=== PATIENT | female | born 1950 | race Caucasian/White ===

== ENCOUNTER 2023-01-09 13:18 | Emergency (ER) | payer OTHER ==
[~2023-01-09] VITALS: Ht 162.6 cm; Wt 59.0 kg
[2023-01-09 13:21] VITALS: BP_SYST 181
[2023-01-09] MEDS ORDERED: traMADol HCL HCL 50 MG TABLET (ULTRAM) PO ONE (14:30)
[2023-01-09 15:06] LABS: BASOPHILS % (AUTO) 0.5 % (0.0-2.0); EOSINOPHILS % (AUTO) 0.8 % (0.0-4.0); HEMOGLOBIN 14.1 g/dL (12.0-16.0); LYMPHOCYTES # (AUTO) 1.4 K/uL (1.0-5.5); LYMPHOCYTES % (AUTO) 25.9 % (20.5-51.5); MEAN CORPUSCULAR HEMOGLOBIN 31 pg (27-31); MEAN CORPUSCULAR HGB CONC 34 % (32-36); MEAN CORPUSCULAR VOLUME 90 fL (79.0-98.0); MONOCYTES # (AUTO) 0.4 K/uL (0.0-1.0); MONOCYTES % (AUTO) 7.7 % (1.7-9.3); NEUTROPHILS # (AUTO) 3.5 K/uL (1.8-7.7); NEUTROPHILS % (AUTO) 65.1 % (40.0-70.0); PLATELET COUNT (AUTO) 182 K/uL (130-430); RED BLOOD CELL COUNT(AUTO) 4.56 MIL/uL (4.2-6.2); RED CELL DISTRIBUTION WIDTH 12.8 % (9.0-15.0); WHITE BLOOD COUNT (AUTO) 5.4 K/uL (4.8-10.8)
[2023-01-09 15:19] LABS: ANION GAP 7 (5-15); CHLORIDE 100 mmol/L (98-107); CREATININE 0.67 mg/dL (0.55-1.30); GLUCOSE 116 mg/dL (70-99); UREA NITROGEN, BLOOD 14 mg/dL (8-21)
[2023-01-09 15:25] LABS: ALANINE AMINOTRANSFERASE 20 U/L (12-78); ASPARTATE AMINOTRANSFERASE 10 U/L (10-37); TOTAL BILIRUBIN 0.6 mg/dL (0.0-1.0)
--- NOTE | 2023-01-09 16:23 | NUR ---
BIB SELF FROM HOME WITH C/O LIGHT HEADEDNESS AND DIZZINESS SINCE THIS MORNING. HX - CANCER, SURGERY. PT IS A CITIZEN OF [place]. PT IS AAX04, NAD, VSS, BREATHING EVEN AND UNLABORED ON RA, PT ON MEDICAL CASE WORKER SHOW NSR. PT REST ON GURNEY IN HALLWAY. SAFETY PRECAUTIONS AND COMFORT MEASURES IN PLACE. PENDING MD VEGA AND ORDERS.
--- NOTE | 2023-01-09 16:25 | NUR ---
BESSY Pierson at bedside examining patient.
[2023-01-09] MEDS ORDERED: traMADol HCL HCL 50 MG TABLET (ULTRAM) ONE (17:26)
[2023-01-09] MEDS ORDERED: TRAM50TA2 PO (18:12)
[2023-01-09] MEDS ORDERED: PSEU30CA2 PO (18:12)
[2023-01-09] MEDS ORDERED: MECL-225 PO (18:12)
--- NOTE | 2023-01-09 18:51 | NUR ---
PT IS MEDICALLY FOR D/C. D/C INSTRUCTIONS GIVEN TO PT. PT TO FOLLOW-UP WITH PCP WITHIN 1-3 DAYS AND TO RETURN TO ED FOR WORSENING S/S. PT VERBALIZED UNDERSTANDING. PT IS AAOX4, NAD, VSS, WRISTBAND REMOVED. PT AMBULATORY WITH STEADY GAIT. PT LEFT ED WITH ALL BELONGINGS.
[2023-01-09 18:52] VITALS: BP_SYST 135
== END 2023-01-09 18:52 | disposition home or self-care (01) ==
LOC: SED 13:18
DX: H92.02 Otalgia, left ear (principal); R42 Dizziness and giddiness; R07.89 Other chest pain; R50.9 Fever, unspecified; I10 Essential (primary) hypertension; E78.5 Hyperlipidemia, unspecified; Z79.899 Other long term (current) drug therapy; Z20.822 Contact with and (suspected) exposure to COVID-19
CPT/HCPCS: 99285; 70470; 71045; 87426; 80053; 85025; 84484; 36415; 93005; 76376; 87804 ×2; Q9967

== ENCOUNTER 2023-03-03 21:47 | Emergency (ER) | payer OTHER, MEDICAID ==
[~2023-03-03] VITALS: Ht 157.5 cm; Wt 63.0 kg
[~2023-03-03 21:47] MED LIST: MECL-225 PO; PSEU30CA2 PO; TRAM50TA2 PO
[2023-03-03 22:08] VITALS: BP_SYST 175
[2023-03-04 00:07] LABS: BASOPHILS % (AUTO) 0.3 % (0.0-2.0); EOSINOPHILS # (AUTO) 0.1 K/uL (0.0-0.4); EOSINOPHILS % (AUTO) 0.7 % (0.0-4.0); HEMOGLOBIN 12.8 g/dL (12.0-16.0); LYMPHOCYTES # (AUTO) 1.4 K/uL (1.0-5.5); LYMPHOCYTES % (AUTO) 18.5 % (20.5-51.5); MEAN CORPUSCULAR HEMOGLOBIN 31 pg (27-31); MEAN CORPUSCULAR HGB CONC 34 % (32-36); MEAN CORPUSCULAR VOLUME 92 fL (79.0-98.0); MONOCYTES # (AUTO) 0.5 K/uL (0.0-1.0); MONOCYTES % (AUTO) 6.7 % (1.7-9.3); NEUTROPHILS # (AUTO) 5.8 K/uL (1.8-7.7); NEUTROPHILS % (AUTO) 73.8 % (40.0-70.0); PLATELET COUNT (AUTO) 170 K/uL (130-430); RED BLOOD CELL COUNT(AUTO) 4.12 MIL/uL (4.2-6.2); WHITE BLOOD COUNT (AUTO) 7.8 K/uL (4.8-10.8)
[2023-03-04 00:08] LABS: BILIRUBIN,URINE NEGATIVE (NEGATIVE); COLOR,URINE YELLOW (YELLOW); GLUCOSE,URINE NEGATIVE (NEGATIVE); KETONES,URINE NEGATIVE (NEGATIVE); LEUKOCYTE ESTERASE ,URINE 2+ (NEGATIVE); NITRITE, URINE NEGATIVE (NEGATIVE); PROTEIN URINE NEGATIVE (NEGATIVE); UROBILINOGEN,URINE 0.2 (0.2-1.0)
[2023-03-04 00:13] LABS: BLOOD, URINE TRACE (NEGATIVE); CLARITY/URINE SLIGHTLY CLOUDY (CLEAR)
[2023-03-04 00:35] LABS: ANION GAP 10 (5-15); CALCIUM 8.2 mg/dL (8.4-11.0); CHLORIDE 105 mmol/L (98-107); CREATININE 0.71 mg/dL (0.55-1.30); GLUCOSE 123 mg/dL (70-99); UREA NITROGEN, BLOOD 18 mg/dL (8-21)
[2023-03-04 00:39] LABS: ALANINE AMINOTRANSFERASE 20 U/L (12-78); ALBUMIN 3.6 g/dL (3.4-4.8); ASPARTATE AMINOTRANSFERASE 16 U/L (10-37); LIPASE 88 U/L (73-393); TOTAL BILIRUBIN 0.3 mg/dL (0.0-1.0)
[2023-03-04 00:50] LABS: BACTERIA,URINE FEW /HPF (None Seen)
[2023-03-04] MEDS ORDERED: NACL 0.9% 1,000 ML IV ONE (01:00)
[2023-03-04] MEDS ORDERED: PHEN-726 PO ×2 (01:46)
[2023-03-04] MEDS ORDERED: LOPE2CAP PO ×2 (01:46)
[2023-03-04] MEDS ORDERED: PROCHLORPERAZINE EDISYLATE 10 MG/2 ML VIAL IVP ONE (02:00)
[2023-03-04] MEDS ORDERED: MORPHINE 4 MG INJ. 4 MG/ML VIAL IVP ONE (02:00)
[2023-03-04] MEDS ORDERED: cefTRIAXone 1 GM in D5W 50 ML IV ONE (02:30)
[2023-03-04] MEDS ORDERED: cefTRIAXone 1 GM VIAL ONE (03:22)
[2023-03-04] MEDS ORDERED: NITR-85 PO ×2 (03:39→03:40)
[2023-03-04] MEDS ORDERED: DOCU-144 PO ×2 (03:39→03:40)
[2023-03-04] MEDS ORDERED: MILK OF MAGNESIA 30 ML UDC PO ONE (04:00)
[2023-03-04 04:15] VITALS: BP_SYST 127
== END 2023-03-04 04:15 | disposition home or self-care (01) ==
LOC: SED 21:47
DX: N39.0 Urinary tract infection, site not specified (principal); K59.00 Constipation, unspecified; K92.2 Gastrointestinal hemorrhage, unspecified; I10 Essential (primary) hypertension; Z88.0 Allergy status to penicillin; Z88.6 Allergy status to analgesic agent; Z79.899 Other long term (current) drug therapy
CPT/HCPCS: 99285; 80053; 81000; 83690; 85025; 87040; 87086; 36415; 82272; 74176; 96365; 96375; 96361; 76376; J0696; J0780; J2270; J7030